=== PATIENT | male | born 1940 | race Caucasian/White ===

== ENCOUNTER 2022-02-17 09:23 | Outpatient (CLI) | payer OTHER | END 2022-02-17 09:30 | disposition home or self-care (01) | LOC: NUCLEAR 09:23 | PROVIDERS: ATTEND Internal Medicine Endocrinology, Diabetes & Metabolism | DX: I73.9 Peripheral vascular disease, unspecified (principal); E11.52 Type 2 diabetes mellitus with diabetic peripheral angiopathy with gangrene ==

== ENCOUNTER 2022-02-23 08:45 | Outpatient (CLI) | payer OTHER | END 2022-02-23 08:51 | disposition home or self-care (01) | LOC: RX STUDY 08:45 | PROVIDERS: ATTEND Otolaryngology Plastic Surgery within the Head & Neck | DX: G83.0 Diplegia of upper limbs (principal) ==